=== PATIENT | male | born 1940 | race Caucasian/White ===

== ENCOUNTER 2021-02-01 22:17 | Outpatient (CLI) | payer MEDICARE, OTHER | END 2021-02-01 22:18 | disposition home or self-care (01) | LOC: EMS 22:17 | DX: R55 Syncope and collapse (principal) | CPT/HCPCS: A0425; A0427 ==

== ENCOUNTER 2021-04-15 18:10 | Outpatient (CLI) | payer MEDICARE, OTHER | END 2021-04-15 18:11 | disposition EMS.NT | LOC: EMS 18:10 | DX: R25.1 Tremor, unspecified (principal) ==

== ENCOUNTER 2021-04-18 09:07 | Outpatient (CLI) | payer MEDICARE, OTHER | END 2021-04-18 09:08 | disposition E | LOC: EMS 09:07 ==